=== PATIENT | male | born 1940 | race Caucasian/White ===

== ENCOUNTER 2017-04-26 19:07 | Emergency (ER) | payer OTHER, MEDICARE ==
[2017-04-26 19:39] VITALS: BP 171/88
[2017-04-26] MEDS ORDERED: Diphtheria,Pertussis(Acell),Tetanus Vaccine 0.5 ML SDV inactive IM ONE (19:46)
[2017-04-26] MEDS ORDERED: Lidocaine 1% with EPINEPHrine 1:100,000 20 ML MDV INJECT ONE (19:46)
[2017-04-26] MEDS ORDERED: Cephalexin 500 MG Cap PO ONE (19:46)
--- NOTE | 2017-04-26 19:48 | EDM.PDOC ---
ED HPI GENERAL MEDICAL PROBLEM - General Chief Complaint: Laceration Stated Complaint: HAND INJURY Time Seen by Provider: 04/26/17 19:40 Source of Information: Reports: Patient History Limitations: Reports: No Limitations - History of Present Illness INITIAL COMMENTS - FREE TEXT/NARRATIVE: Patient is a 76 y/o male who presents to the E.D. complaining of laceration to the dorsal aspect of the left hand. Patient was utilizing a log washer while cleaning mud off of golf cleats. States the wand accidentally glanced over this hand causing the laceration. Bleeding was controlled with direct pressure. Tetanus status is not up to date. Pain is minimal. No pain with extension/flexion of the fingers. Denies any additional complaints. Left Hand Pain Score (Numeric/FACES): 4 - Related Data Allergies Allergy/AdvReac Type Severity Reaction Status Date / Time No Known Allergies Allergy Verified 04/26/17 19:42 Home Meds: Home Meds Cephalexin [Keflex] 500 mg PO Q6HR #40 cap 04/26/17 [Rx] ED ROS GENERAL - Review of Systems Review Of Systems: See Below Musculoskeletal: Reports: Hand Pain Skin: Reports: Wound. Denies: Bruising, Pruritis Neurological: Denies: Numbness, Tingling ED EXAM, SKIN/RASH Exam: See Below Exam Limited By: No Limitations General Appearance: Alert, WD/WN, No Apparent Distress Ears: Hearing Grossly Normal Nose: Normal Inspection Throat/Mouth: Normal Voice, No Airway Compromise Neck: Normal Inspection, Supple Respiratory/Chest: No Respiratory Distress, No Accessory Muscle Use Cardiovascular: Normal Peripheral Pulses, Regular Rate, Rhythm Peripheral Pulses: 2+: Radial (L) Extremities: Other (1 cm deeplaceration to the dorsal aspect of the left hand with no bleeding. No pain with extension of fingers against resistance. No swelling, bruising, or drainage noted. ) Neurological: Alert, Oriented, CN II-XII Intact, Normal Cognition, No Motor/ Sensory Deficits Psychiatric: Normal Affect, Normal Mood Skin: Warm, Dry, Normal Color ED SKIN PROCEDURES - Laceration/Wound Repair Left Hand Lac/wound length in cm: 1 Appearance: Subcutaneous, Clean Distal NVT: Neuro & Vascular Intact, No Tendon Injury Local Anesthesia - Lidocaine (Xylocaine): 1% With EPI Local Anesthetic Volume: 4cc Skin Prep: Saline, Sterile Drape Exploration/Debridement/Repair: Wound Explored, Explored to Base, No Foreign Material Found Suture Size: 4-0 # of Sutures: 3 (loosely tied) Suture Type: Prolene, Interrupted, Simple Drain Placement: No Sterile Dressing Applied: Nurse Tetanus Status Addressed: Yes Complications: No - Splinting Left Upper Extremity Pre-procedure NV status: Normal Post-procedure NV status: Normal Splint Material: Fiberglass Splint Design: Volar Applied & Form Fitted By: Provider Provider Post-Splint Application NV Check: NV Status Normal, Good Position Complications: No Course - Vital Signs Last Recorded V/S: Last Vital Signs Temp 98.3 F 04/26/17 19:38 Pulse 68 04/26/17 19:38 Resp 20 04/26/17 19:38 BP 171/88 H 04/26/17 19:38 Pulse Ox 98 04/26/17 19:38 - Orders/Labs/Meds Orders: Active Orders 24 hr Category Date Time Status Vaccines to be Administered [RC] PER UNIT ROUTINE Care 04/26/17 19:47 Active Hand 2V Lt [CR] Stat Exams 04/26/17 19:46 Taken cefTRIAXone [Rocephin] 1 gm Med 04/26/17 21:00 Active Lidocaine 1% [Xylocaine 1%] 2.1 ml IM Q24H Medication Orders Ceftriaxone Sodium 1 gm/ (Lidocaine HCl 2.1 ml) 0 gm IM Q24H [place] Meds: Medications Generic Name Dose Route Start Last Admin Trade Name Freq PRN Reason Stop Dose Admin Ceftriaxone Sodium 1 gm/ 0 gm 04/26/17 21:00 Lidocaine HCl 2.1 ml IM Q24H [place] Discontinued Medications Generic Name Dose Route Start Last Admin Trade Name Freq PRN Reason Stop Dose Admin Cephalexin 500 mg 04/26/17 19:46 04/26/17 20:21 Keflex PO 04/26/17 19:47 500 mg ONETIME ONE Administration Diphtheria/Tetanus/Acell Pertussis 0.5 ml 04/26/17 19:46 04/26/17 20:18 Boostrix IM 04/26/17 19:47 0.5 ml .ONCE ONE Administration Lidocaine/Epinephrine 20 ml 04/26/17 19:46 04/26/17 20:22 Xylocaine 1% With Epinephrine 1:100,000 INJECT 04/26/17 19:47 20 ml ONETIME ONE Administration - Re-Assessments/Exams Free Text/Narrative Re-Assessment/Exam: 04/26/17 19:47 ordered an x-ray of the left hand to evaluate for foreign objects. In addition will update his tetanus today. Order lidocaine with epi and Keflex 500 mg p.o. X-ray of the left hand did not reveal any obvious foreign objects within the hand. Air along the metacarpals and fingers present. No acute bony abnormalities noted. 04/26/17 20:[address] Last. Suggested rocephin 1 gram IM. Volar splint. Loosely close laceration. Followup with this coming Friday for reevaluation in his clinic. 04/26/17 21:09 Laceration closed with no complications. 212 Splint applied with no complications. Discharged home with instructions as documented. Departure - Departure Time of Disposition: 21:10 Disposition: Home, Self-Care 01 Condition: good Clinical Impression: Hand laceration Qualifiers: Encounter type: initial encounter Foreign body presence: unspecified Laterality : left Qualified Code(s): S61.412A - Laceration without foreign body of left hand, initial encounter - Discharge Information Prescriptions: Cephalexin [Keflex] 500 mg PO Q6HR #40 cap Instructions: Puncture Wound, [id number], Laceration Care, Adult, Easy-to- Read, Stitches, Nadja, or Adhesive Wound Closure, [id number] Referrals: PCP,None [Primary Care Provider] - Luis Fernando Last MD [Physician] - Forms: ED Department Discharge Additional Instructions: Take the antibiotics as prescribed. Leave splint in place. Change dressing twice a day and reapply antibiotic ointment. Utilized ibuprofen and Tylenol in alternating fashion for pain. Elevate when able to reduce swelling and pain. Call Dr. Last's clinic Friday morning to be evaluated that day. return to the ED if he experienced fever/chills, increased redness, increased swelling, or purulent drainage. - My Orders Last 24 Hours: My Active Orders 04/26/17 19:46 Hand 2V Lt [CR] Stat 04/26/17 19:47 Vaccines to be Administered [RC] PER UNIT ROUTINE 04/26/17 21:00 cefTRIAXone [Rocephin] 1 gm Lidocaine 1% [Xylocaine 1%] 2.1 ml IM Q24H - Assessment/Plan Last 24 Hours: My Active Orders 04/26/17 19:46 Hand 2V Lt [CR] Stat 04/26/17 19:47 Vaccines to be Administered [RC] PER UNIT ROUTINE 04/26/17 21:00 cefTRIAXone [Rocephin] 1 gm Lidocaine 1% [Xylocaine 1%] 2.1 ml IM Q24H
[2017-04-26] MEDS ORDERED: cefTRIAXone 1 GM, Lidocaine 1% 2.1 ML IM SCH ×2 (21:00)
[2017-04-26] MEDS ORDERED: cefTRIAXone 1 GM, Lidocaine 1% 2.1 ML IM ONE ×2 (21:24)
--- NOTE | 2017-04-29 09:37 | CR ---
Left hand: Two views of the left hand were obtained. Comparison: No previous study. Soft tissue air identified within the hand and fingers. Mild joint space narrowing is scattered within the DIP and PIP joints. No radiopaque foreign object is seen. No fracture or other bony abnormality is seen. Impression: 1. Soft tissue air. 2. Minimal degenerative change. No acute bony abnormality, no radiopaque foreign object. Diagnostic code #3
== END 2017-04-26 22:10 | disposition home or self-care (01) ==
LOC: JD.ED 19:07
DX: S61.412A Laceration without foreign body of left hand, initial encounter (principal); W31.89XA Contact with other specified machinery, initial encounter
CPT/HCPCS: 12001; 29125; 73120; 90471; 96372; 99283; A9270; J0696; 90715

== ENCOUNTER 2020-04-06 13:53 | Emergency (ER) | payer OTHER, MEDICARE ==
[2020-04-06 14:19] VITALS: BP 148/73; PULSE 83
--- NOTE | 2020-04-06 14:34 | EDM.PDOC ---
ED HPI GENERAL MEDICAL PROBLEM - General Chief Complaint: Genitourinary Problem Stated Complaint: FREQUENT URINATION/UNABLE TO HAVE A BOWEL MOVEMENT Time Seen by Provider: 04/06/20 13:59 Source of Information: Reports: Patient History Limitations: Reports: No Limitations - History of Present Illness INITIAL COMMENTS - FREE TEXT/NARRATIVE: Patient is an 79-year-old male who presents to the emergency department with complaints of frequency of urination and constipation. He has a history of BPH with a TURP completed in May of last year. States he has been doing well, however the last few days he will frequently get the urge to void, however he is not always able to go when he tries. At other times he barely gets the urge to go and has an episode of incontinence. Denies any burning with urination or blood in his urine. He also complains of not having a bowel movement since Friday. He has been taking a capful of MiraLAX daily. Yesterday he took a capful in the morning and in the evening. He also took 1 this morning. He has been passing small amounts of gas. He denies any abdominal pain, nausea, or vomiting. Patient is here for the summer to work in [employer]. He had his TURP surgery done in [place]. He has not had a follow-up appointment with his urologist since the surgery. - Related Data Allergies Allergy/AdvReac Type Severity Reaction Status Date / Time No Known Allergies Allergy Verified 04/26/17 19:42 Home Meds: Home Meds . [Unable to Verify Home Med List] 04/06/20 [History] Past Medical History HEENT History: Reports: Other (See Below) Other HEENT History: fractured jaw Hematologic History: Reports: Other (See Below) Other Hematologic History: sepsis Oncologic (Cancer) History: Reports: Other (See Below) Other Oncologic History: forehead-melonoma - Past Surgical History GI Surgical History: Reports: Hernia, Abdominal Male Surgical History: Reports: TURP-Transurethral Resection of Prostate Social & Family History - Tobacco Use Smoking Status *Q: Never Smoker - Caffeine Use Caffeine Use: Reports: Coffee, Soda, Tea - Recreational Drug Use Recreational Drug Use: No ED ROS GENERAL - Review of Systems Review Of Systems: Comprehensive ROS is negative, except as noted in HPI. ED EXAM, RENAL/ - Physical Exam Exam: See Below General Appearance: Alert, WD/WN, No Apparent Distress Respiratory/Chest: No Respiratory Distress, Lungs Clear, Normal Breath Sounds, No Accessory Muscle Use, Chest Non-Tender Cardiovascular: Normal Peripheral Pulses, Regular Rate, Rhythm, No Edema, No Gallop, No JVD, No Murmur, No Rub GI/Abdominal: Normal Bowel Sounds, Soft, Non-Tender, No Organomegaly, No Distention, No Abnormal Bruit, No Mass Neurological: Alert, Oriented, CN II-XII Intact, Normal Cognition, Normal Gait, Normal Reflexes, No Motor/Sensory Deficits Psychiatric: Normal Affect, Normal Mood Skin Exam: Warm, Dry, Intact, Normal Color, No Rash Course - Vital Signs Last Recorded V/S: Last Vital Signs Temp 99.9 F 04/06/20 14:17 Pulse 83 04/06/20 14:17 Resp 20 04/06/20 14:17 BP 148/73 H 04/06/20 14:17 Pulse Ox 94 L 04/06/20 14:17 - Orders/Labs/Meds Orders: Active Orders 24 hr Category Date Time Status Bladder Scan [RC] ASDIRECTED Care 04/06/20 14:09 Active Labs: Laboratory Tests 04/06/20 04/06/20 04/06/20 Range/Units 14:50 14:50 15:45 WBC 11.26 H (4.23-9.07) K/mm3 RBC 4.60 L (4.63-6.08) M/mm3 Hgb 14.1 (13.7-17.5) gm/dl Hct 43.0 (40.1-51.0) % MCV 93.5 H (79.0-92.2) fl MCH 30.7 (25.7-32.2) pg MCHC 32.8 (32.2-35.5) g/dl RDW Std Deviation 42.5 (35.1-43.9) fL Plt Count 225 (163-337) K/mm3 MPV 9.7 (9.4-12.3) fl Neut % (Auto) 69.9 H (34.0-67.9) % Lymph % (Auto) 18.3 L (21.8-53.1) % [place] % (Auto) 10.9 (5.3-12.2) % Eos % (Auto) 0.4 L (0.8-7.0) Baso % (Auto) 0.2 (0.1-1.2) % Neut # (Auto) 7.87 H (1.78-5.38) K/mm3 Lymph # (Auto) 2.06 (1.32-3.57) K/mm3 [place] # (Auto) 1.23 H (0.30-0.82) K/mm3 Eos # (Auto) 0.05 (0.04-0.54) K/mm3 Baso # (Auto) 0.02 (0.01-0.08) K/mm3 Manual Slide Review Normal smear Sodium 137 (136-145) mEq/L Potassium 4.1 (3.5-5.1) mEq/L Chloride 101 (98-107) mEq/L Carbon Dioxide 27 (21-32) mEq/L Anion Gap 13.1 (5-15) BUN 19 H (7-18) mg/dL Creatinine 1.3 (0.7-1.3) mg/dL Est Cr Clr Drug Dosing 46.79 mL/min Estimated GFR (MDRD) 53 (>60) mL/min BUN/Creatinine Ratio 14.6 (14-18) Glucose 104 (83-115) mg/dL Calcium 9.1 (8.5-10.1) mg/dL Total Bilirubin 0.5 (0.2-1.0) mg/dL AST 32 (15-37) U/L ALT 37 (16-63) U/L Alkaline Phosphatase 91 (46-116) U/L Total Protein 7.4 (6.4-8.2) g/dl Albumin 3.4 (3.4-5.0) g/dl Globulin 4.0 gm/dL Albumin/Globulin Ratio 0.9 L (1-2) Urine Color Yellow (Yellow) Urine Appearance Clear (Clear) Urine pH 6.0 (5.0-8.0) Ur Specific [place] 1.020 (1.005-1.030) Urine Protein Negative (Negative) Urine Glucose (UA) Negative (Negative) Urine Ketones Negative (Negative) Urine Occult Blood Negative (Negative) Urine Nitrite Negative (Negative) Urine Bilirubin Negative (Negative) Urine Urobilinogen 2.0 H (0.2-1.0) Ur Leukocyte Esterase Negative (Negative) Urine RBC Not seen (0-5) /hpf Urine WBC 0-5 (0-5) /hpf Ur Squamous Epith Cells 0-5 (0-5) /hpf Urine Bacteria Not seen (FEW) /hpf Urine Mucus Not seen (FEW) /hpf Meds: Medications Discontinued Medications Generic Name Dose Route Start Last Admin Trade Name Gerald PRN Reason Stop Dose Admin Magnesium Citrate 296 ml 04/06/20 16:09 04/06/20 16:39 Citrate Of Magnesia PO 04/06/20 16:10 296 ml ONETIME ONE Administration - Re-Assessments/Exams Free Text/Narrative Re-Assessment/Exam: 04/06/20 16:09 Patient's work-up was grossly unremarkable. Post void residual was 240 mils. He was able to void a small amount. Based on these amounts, I do not feel that a Cam[place] catheter is indicated at this point. He has had to straight cath in the past, but it has been quite a while. Abdomen pelvis x-ray was negative for any acute findings. On review it does appear that there is a collection of stool in the rectal vault which may be affecting his urination as well. After discussion with him, we will send him home with a bottle of magnesium citrate to cleanse his bowels. If after this is complete he continues to have urinary issues, he will follow-up in the clinic to arrange for straight cath supplies. Discharge instructions as documented. Departure - Departure Time of Disposition: 16:11 Disposition: Home, Self-Care 01 Condition: Good Clinical Impression: Urinary retention due to benign prostatic hyperplasia Constipation Qualifiers: Constipation type: unspecified constipation type Qualified Code(s): K59.00 - Constipation, unspecified - Discharge Information *PRESCRIPTION DRUG MONITORING PROGRAM REVIEWED*: No *COPY OF PRESCRIPTION DRUG MONITORING REPORT IN PATIENT MARSHALL: No Instructions: Benign Prostatic Hyperplasia, Constipation, Adult Referrals: PCP,None [Ordering Only Provider] - Forms: ED Department Discharge Additional Instructions: You were seen in the emergency department today for urinary symptoms as well as constipation. Your work-up included blood work, urinalysis, a bladder scan, and an x-ray of your abdomen and pelvis. Blood work was found to be overall normal. Urinalysis was negative for any signs of infection. After he had voided you did still have 240 mils of urine left in your bladder. X-ray of your abdomen was found to be normal with the exception of a collection of stool in the lower rectal vault. You have been sent home with a bottle of magnesium citrate. Take this when you get to a location where you will be near a toilet for a while. This may improve your urinary symptoms. If you find that you continue to have frequency and urinary retention after you cleanse your bowels, would recommend that you follow-up in the clinic to discuss obtaining supplies for self catheterization and a referral to urology as needed. Return to the ER as needed. Sepsis Event Note - Evaluation Sepsis Screening Result: No Definite Risk - Focused Exam Vital Signs: Vital Signs Temp Pulse Resp BP Pulse Ox 04/06/20 14:17 99.9 F 83 20 148/73 H 94 L Date Exam was Performed: 04/06/20 Time Exam was Performed: 21:05 - My Orders Last 24 Hours: My Active Orders 04/06/20 14:09 Bladder Scan [RC] ASDIRECTED - Assessment/Plan Last 24 Hours: My Active Orders 04/06/20 14:09 Bladder Scan [RC] ASDIRECTED
--- NOTE | 2020-04-06 14:58 | CR ---
Abdomen: Supine and upright views of the abdomen were obtained. Scattered gas within small bowel and colon is seen. This appears to be nonobstructive. Calcifications are seen with the pelvis most likely due to phleboliths. Mild degenerative change is scattered throughout the spine. No free air is seen. Impression: 1. Findings as noted above. 2. Nothing acute is seen. Diagnostic code #2 This report was dictated in MDT
[2020-04-06] MEDS ORDERED: Magnesium Citrate Solution 296 ML Bottle PO ONE (16:09)
== END 2020-04-06 16:25 | disposition home or self-care (01) ==
LOC: JD.ED 13:53
DX: N40.1 Benign prostatic hyperplasia with lower urinary tract symptoms (principal); R33.8 Other retention of urine; K59.00 Constipation, unspecified
CPT/HCPCS: 36415; 51798; 74019; 80053; 81001; 85025; 99283; A9270

== ENCOUNTER 2023-03-20 11:48 | Emergency (ER) | payer MEDICARE, OTHER ==
[2023-03-20] MEDS ORDERED: Sodium Chloride 0.9% 10 ML Syringe FLUSH PRN (12:08)
[2023-03-20] MEDS ORDERED: Iopamidol 755 Mg/ML 100 ML Bottle IVPUSH ONE (13:28)
[2023-03-20] MEDS ORDERED: Sodium Chloride 0.9% 10 ML Syringe FLUSH ONE (13:28)
[2023-03-20] MEDS ORDERED: Sodium Chloride 0.9% 100 ML IV SCH (13:30)
[2023-03-20 16:48] VITALS: BP 113/70; PULSE 84
== END 2023-03-20 16:45 | disposition home or self-care (01) ==
LOC: JD.ED 11:48
DX: R91.1 Solitary pulmonary nodule (principal); R31.9 Hematuria, unspecified
CPT/HCPCS: 36415; 74178; 80053; 81001; 85025; 99284; J3490; Q9967